=== PATIENT | female | born 1970 | race Caucasian/White ===

== ENCOUNTER → 2016-08-28 | Outpatient (CLI) | payer BC, OTHER ==
--- NOTE | 2016-08-28 09:13 | KCIC ---
Examination: MRI of the left shoulder without contrast. HISTORY History of left shoulder pain, tingling, and limited range of motion. COMPARISON None available. TECHNIQUE Multiplanar, multisequence MR imaging of the left shoulder performed without contrast. Findings : The long head of biceps tendon is within the bicipital groove. The attachment of the long head of the biceps tendon to superior labral anchor grossly appears intact. The attachment of the subscapularis tendon grossly appears intact. There is mild tendinosis of the supraspinatus and infraspinatus tendon. No evidence of rotator cuff tear identified. The visualized labrum appears intact. The muscle bulk grossly appears unremarkable. Mild degenerative changes identified in the acromioclavicular joint. The acromion is type 2. Fat is present within the rotator interval. The muscle bulk grossly appears unremarkable. IMPRESSION Mild tendinosis supraspinatus, infraspinatus tendon. No evidence of full-thickness rotator cuff tear. Electronically signed by: Arun Montgomery (Aug 28, 2016 09:12:32)
== END | disposition home or self-care (01) ==
LOC: KCIC MRI 07:54
PROVIDERS: ATTEND Nurse Practitioner Family
DX: M25.512 Pain in left shoulder (principal)
CPT/HCPCS: 73221